=== PATIENT | female | born 1980 ===

== ENCOUNTER 2019-03-24 02:24 | Emergency (ER) | payer SELFPAY ==
[~2019-03-24 02:24] MED LIST: Sodium Chloride 0.9% 10 ML Syringe FLUSH PRN
[2019-03-24] MEDS ORDERED: Iopamidol 755 Mg/ML 100 ML Bottle IV ONE (02:42)
[2019-03-24] MEDS ORDERED: Sodium Chloride 0.9% 1,000 ML IV ONE (02:52)
--- NOTE | 2019-03-24 03:01 | EDM.PDOC ---
ED HPI GENERAL MEDICAL PROBLEM - General Chief Complaint: General Stated Complaint: Pill ingestion Time Seen by Provider: 03/24/19 02:30 Source of Information: Reports: Patient, EMS, Police History Limitations: Reports: Altered Mental Status - History of Present Illness INITIAL COMMENTS - FREE TEXT/NARRATIVE: Patient is currently incarcerated in [place], [place]. A bag of pills were found in the patient's possession at 6pm 03/23/19. Patient states she took 4-6 of them to sleep, but does not know exactly what time she took them, but per police worker , it was sometime before 6pm. Unfortunately pills were confiscated and sent to a facility for identification, they were not brought in with the patient. chemical instrumentation officer describes the pills as having a Q on one side and a cross on the other. Patient denies suicide attempt or ideation. She fell in the bathroom while urinating @01:30, struck her head, unknown if she lost consciousness. Complains of headache and LLQ abdominal pain. She complains of generalized weakness, is unsteady on her feet and feels nauseas. - Related Data Allergies Allergy/AdvReac Type Severity Reaction Status Date / Time No Known Allergies Allergy Verified 03/24/19 02:42 Home Meds: Home Meds NK [No Known Home Meds] 03/24/19 [History] Past Medical History - Past Health History Medical/Surgical History: Denies Medical/Surgical History ED ROS GENERAL - Review of Systems Review Of Systems: Comprehensive ROS is negative, except as noted in HPI. ED EXAM, GENERAL - Physical Exam Exam: See Below Exam Limited By: No Limitations General Appearance: WD/WN, No Apparent Distress, Lethargic Eye Exam: Bilateral Eye: EOMI, PERRL Throat/Mouth: No Airway Compromise Head: Normocephalic, Other (right forehead swelling) Neck: Supple, Non-Tender Respiratory/Chest: No Respiratory Distress, Lungs Clear, Normal Breath Sounds Cardiovascular: Regular Rate, Rhythm, No Murmur GI/Abdominal: Normal Bowel Sounds, Soft, No Distention, Tender (LLQ) Back Exam: Full Range of Motion Extremities: Normal Range of Motion Neurological: Normal Cognition, No Motor/Sensory Deficits, Disoriented, Other ( GCS 13 (E3, V4, M6)) Skin Exam: Warm, Dry, Intact EKG INTERPRETATION EKG Date: 03/24/19 Time: 03:15 Rhythm: NSR Rate (Beats/Min): 87 [place]: Normal P-Wave: Present QRS: Normal ST-T: Normal QT: Normal Course - Vital Signs Text/Narrative:: 0325: T 97.7, BP 115/76, HR 86, RR 25, Sa02 100% RA Last Recorded V/S: Last Vital Signs Temp 36.5 C 03/24/19 02:25 Pulse 91 03/24/19 02:25 Resp 18 03/24/19 02:25 BP 158/82 H 03/24/19 02:25 Pulse Ox 99 03/24/19 02:25 - Orders/Labs/Meds Orders: Active Orders 24 hr Category Date Time Status EKG Documentation Completion [RC] ASDIRECTED Care 03/24/19 02:27 Active Moya Catheter Insertion [Insert Urinary Catheter] [OM. Care 03/24/19 03:00 Ordered PC] Q24H Urinary Catheter Assessment [RC] QSHIFT Care 03/24/19 02:52 Active Abdomen Pelvis w Cont [CT] Stat Exams 03/24/19 02:29 Taken Cervical Spine wo Cont [CT] Stat Exams 03/24/19 03:25 Taken Head wo Cont [CT] Stat Exams 03/24/19 03:25 Taken UA W/MICROSCOPIC [URIN] Stat Lab 03/24/19 03:40 Ordered UA W/O MICROSCOPIC [URIN] Stat Lab 03/24/19 03:40 Ordered EKG 12 Lead [EK] Stat Ther 03/24/19 02:26 Ordered Labs: Laboratory Tests 03/24/19 03/24/19 03/24/19 Range/Units 02:34 02:34 02:34 WBC (4.5-12.0) X10-3/uL RBC (3.23-5.20) x10(6)uL Hgb (11.5-15.5) g/dL Hct (30.0-51.3) % MCV (80-96) fL MCH (27.7-33.6) pg MCHC (32.2-35.4) g/dL RDW (11.5-15.5) % Plt Count (125-369) X10(3)uL MPV (7.4-10.4) fL Neut % (Auto) (46-82) % Lymph % (Auto) (13-37) % [place] % (Auto) (4-12) % Eos % (Auto) (1.0-5.0) % Baso % (Auto) (0-2) % Neut # (Auto) (1.6-8.3) # Lymph # (Auto) (0.6-5.0) # [place] # (Auto) (0.0-1.3) # Eos # (Auto) (0.0-0.8) # Baso # (Auto) (0.0-0.2) # Sodium (135-145) mmol/L Potassium (3.5-5.3) mmol/L Chloride (100-110) mmol/L Carbon Dioxide (21-32) mmol/L BUN (7-18) mg/dL Creatinine (0.55-1.02) mg/dL Est Cr Clr Drug Dosing Estimated GFR (MDRD) (>60) BUN/Creatinine Ratio (9-20) Glucose (80-116) mg/dL Calcium (8.6-10.2) mg/dL Total Bilirubin (0.1-1.3) mg/dL AST (5-25) IU/L ALT (12-36) U/L Alkaline Phosphatase (56-112) IU/L Total Protein (6.0-8.0) g/dL Albumin (3.5-5.2) g/dL Globulin g/dL Albumin/Globulin Ratio TSH, Ultra Sensitive (0.36-3.74) IU/mL Urine Color Yellow (YELLOW) Urine Appearance Slightly cloudy (CLEAR) Urine pH 6.0 (5.0-6.5) Ur Specific [place] 1.025 (1.010-1.025) Urine Protein Negative (NEGATIVE) mg/dL Urine Glucose (UA) Normal (NORMAL) mg/dL Urine Ketones Negative (NEGATIVE) mg/dL Urine Occult Blood Negative (NEGATIVE) Urine Nitrite Negative (NEGATIVE) Urine Bilirubin Negative (NEGATIVE) Urine Urobilinogen Normal (NEGATIVE) mg/dL Ur Leukocyte Esterase Small H (NEGATIVE) Urine RBC Cancelled Urine WBC Cancelled Ur Epithelial Cells Cancelled Ur Squamous Epith Cells Cancelled Ur Renal Epithelial Cell Cancelled Calcium Oxalate Crystal Cancelled Uric Acid Crystals Cancelled Triple Phos Crystals Cancelled Other Crystals Cancelled Amorphous Sediment Cancelled Urine Bacteria Cancelled Hyaline Casts Cancelled Fine Granular Casts Cancelled Coarse Granular Casts Cancelled Waxy Casts Cancelled RBC Casts Cancelled WBC Casts Cancelled Urine Mucus Cancelled Urine Trichomonas Cancelled Urine Yeast Cancelled Urine Sperm Cancelled Ur Oval Fat Bodies Cancelled Urinalysis Comment Cancelled Urine HCG, Qual Negative (NEGATIVE) Salicylates (<2.8) mg/dL Urine Opiates Screen Negative (NEGATIVE) Ur Oxycodone Screen Negative (NEGATIVE) Ur Propoxyphene Screen Negative (NEGATIVE) Acetaminophen (<2) ug/mL Ur Barbituates Screen Negative (NEGATIVE) Ur Tricyclics Screen Negative (NEGATIVE) Ur Phencyclidine Scrn Negative (NEGATIVE) Ur Amphetamine Screen Positive H (NEGATIVE) Urine MDMA Screen Negative (NEGATIVE) U Benzodiazepines Scrn Positive H (NEGATIVE) U Cocaine Metab Screen Negative (NEGATIVE) U Marijuana (THC) Screen Negative (NEGATIVE) Ethyl Alcohol (<0.03) % 03/24/19 03/24/19 03/24/19 Range/Units 03:25 03:25 03:25 WBC 11.8 (4.5-12.0) X10-3/uL RBC 4.40 (3.23-5.20) x10(6)uL Hgb 14.0 (11.5-15.5) g/dL Hct 40.8 (30.0-51.3) % MCV 92.7 (80-96) fL MCH 31.9 (27.7-33.6) pg MCHC 34.4 (32.2-35.4) g/dL RDW 12.3 (11.5-15.5) % Plt Count 248 (125-369) X10(3)uL MPV 9.1 (7.4-10.4) fL Neut % (Auto) 58.7 (46-82) % Lymph % (Auto) 33.0 (13-37) % [place] % (Auto) 6.5 (4-12) % Eos % (Auto) 1 (1.0-5.0) % Baso % (Auto) 1 (0-2) % Neut # (Auto) 6.8 (1.6-8.3) # Lymph # (Auto) 3.9 (0.6-5.0) # [place] # (Auto) 0.8 (0.0-1.3) # Eos # (Auto) 0.2 (0.0-0.8) # Baso # (Auto) 0.1 (0.0-0.2) # Sodium 141 (135-145) mmol/L Potassium 3.8 (3.5-5.3) mmol/L Chloride 105 (100-110) mmol/L Carbon Dioxide 28 (21-32) mmol/L BUN 7 (7-18) mg/dL Creatinine 0.7 (0.55-1.02) mg/dL Est Cr Clr Drug Dosing TNP Estimated GFR (MDRD) > 60 (>60) BUN/Creatinine Ratio 10.0 (9-20) Glucose 88 (80-116) mg/dL Calcium 8.3 L (8.6-10.2) mg/dL Total Bilirubin 0.4 (0.1-1.3) mg/dL AST 26 H (5-25) IU/L ALT 54 H (12-36) U/L Alkaline Phosphatase 82 (56-112) IU/L Total Protein 7.0 (6.0-8.0) g/dL Albumin 3.4 L (3.5-5.2) g/dL Globulin 3.6 g/dL Albumin/Globulin Ratio 0.9 TSH, Ultra Sensitive (0.36-3.74) IU/mL Urine Color (YELLOW) Urine Appearance (CLEAR) Urine pH (5.0-6.5) Ur Specific [place] (1.010-1.025) Urine Protein (NEGATIVE) mg/dL Urine Glucose (UA) (NORMAL) mg/dL Urine Ketones (NEGATIVE) mg/dL Urine Occult Blood (NEGATIVE) Urine Nitrite (NEGATIVE) Urine Bilirubin (NEGATIVE) Urine Urobilinogen (NEGATIVE) mg/dL Ur Leukocyte Esterase (NEGATIVE) Urine RBC Urine WBC Ur Epithelial Cells Ur Squamous Epith Cells Ur Renal Epithelial Cell Calcium Oxalate Crystal Uric Acid Crystals Triple Phos Crystals Other Crystals Amorphous Sediment Urine Bacteria Hyaline Casts Fine Granular Casts Coarse Granular Casts Waxy Casts RBC Casts WBC Casts Urine Mucus Urine Trichomonas Urine Yeast Urine Sperm Ur Oval Fat Bodies Urinalysis Comment Urine HCG, Qual (NEGATIVE) Salicylates 2.0 L (<2.8) mg/dL Urine Opiates Screen (NEGATIVE) Ur Oxycodone Screen (NEGATIVE) Ur Propoxyphene Screen (NEGATIVE) Acetaminophen < 2 L (<2) ug/mL Ur Barbituates Screen (NEGATIVE) Ur Tricyclics Screen (NEGATIVE) Ur Phencyclidine Scrn (NEGATIVE) Ur Amphetamine Screen (NEGATIVE) Urine MDMA Screen (NEGATIVE) U Benzodiazepines Scrn (NEGATIVE) U Cocaine Metab Screen (NEGATIVE) U Marijuana (THC) Screen (NEGATIVE) Ethyl Alcohol < 0.03 (<0.03) % 03/24/19 Range/Units 03:25 WBC (4.5-12.0) X10-3/uL RBC (3.23-5.20) x10(6)uL Hgb (11.5-15.5) g/dL Hct (30.0-51.3) % MCV (80-96) fL MCH (27.7-33.6) pg MCHC (32.2-35.4) g/dL RDW (11.5-15.5) % Plt Count (125-369) X10(3)uL MPV (7.4-10.4) fL Neut % (Auto) (46-82) % Lymph % (Auto) (13-37) % [place] % (Auto) (4-12) % Eos % (Auto) (1.0-5.0) % Baso % (Auto) (0-2) % Neut # (Auto) (1.6-8.3) # Lymph # (Auto) (0.6-5.0) # [place] # (Auto) (0.0-1.3) # Eos # (Auto) (0.0-0.8) # Baso # (Auto) (0.0-0.2) # Sodium (135-145) mmol/L Potassium (3.5-5.3) mmol/L Chloride (100-110) mmol/L Carbon Dioxide (21-32) mmol/L BUN (7-18) mg/dL Creatinine (0.55-1.02) mg/dL Est Cr Clr Drug Dosing Estimated GFR (MDRD) (>60) BUN/Creatinine Ratio (9-20) Glucose (80-116) mg/dL Calcium (8.6-10.2) mg/dL Total Bilirubin (0.1-1.3) mg/dL AST (5-25) IU/L ALT (12-36) U/L Alkaline Phosphatase (56-112) IU/L Total Protein (6.0-8.0) g/dL Albumin (3.5-5.2) g/dL Globulin g/dL Albumin/Globulin Ratio TSH, Ultra Sensitive 1.53 (0.36-3.74) IU/mL Urine Color (YELLOW) Urine Appearance (CLEAR) Urine pH (5.0-6.5) Ur Specific [place] (1.010-1.025) Urine Protein (NEGATIVE) mg/dL Urine Glucose (UA) (NORMAL) mg/dL Urine Ketones (NEGATIVE) mg/dL Urine Occult Blood (NEGATIVE) Urine Nitrite (NEGATIVE) Urine Bilirubin (NEGATIVE) Urine Urobilinogen (NEGATIVE) mg/dL Ur Leukocyte Esterase (NEGATIVE) Urine RBC Urine WBC Ur Epithelial Cells Ur Squamous Epith Cells Ur Renal Epithelial Cell Calcium Oxalate Crystal Uric Acid Crystals Triple Phos Crystals Other Crystals Amorphous Sediment Urine Bacteria Hyaline Casts Fine Granular Casts Coarse Granular Casts Waxy Casts RBC Casts WBC Casts Urine Mucus Urine Trichomonas Urine Yeast Urine Sperm Ur Oval Fat Bodies Urinalysis Comment Urine HCG, Qual (NEGATIVE) Salicylates (<2.8) mg/dL Urine Opiates Screen (NEGATIVE) Ur Oxycodone Screen (NEGATIVE) Ur Propoxyphene Screen (NEGATIVE) Acetaminophen (<2) ug/mL Ur Barbituates Screen (NEGATIVE) Ur Tricyclics Screen (NEGATIVE) Ur Phencyclidine Scrn (NEGATIVE) Ur Amphetamine Screen (NEGATIVE) Urine MDMA Screen (NEGATIVE) U Benzodiazepines Scrn (NEGATIVE) U Cocaine Metab Screen (NEGATIVE) U Marijuana (THC) Screen (NEGATIVE) Ethyl Alcohol (<0.03) % Meds: Medications Discontinued Medications Generic Name Dose Route Start Last Admin Trade Name Isis PRN Reason Stop Dose Admin Sodium Chloride 1,000 mls @ 999 mls/hr 03/24/19 02:52 03/24/19 03:30 Normal Saline IV 03/24/19 03:52 999 mls/hr .BOLUS ONE Administration Iopamidol 100 ml 03/24/19 02:42 03/24/19 03:03 Isovue-370 (76%) IV 03/24/19 02:43 81 ml ONETIME ONE Administration - Radiology Interpretation Free Text/Narrative:: CT Head w/o contrast: No acute process. Sphenoid mucosal thickening and secretions. Correlate for possible sinusitis. ([facility], Dr. Mo) CT C-spine w/o contrast: No acute fracture or malalignment. ([facility], Dr. Mo) CT Abd/Pelvis w/ IV contrast: No acute process. Cholelithiasis. ([facility], Dr. Mo ) - Re-Assessments/Exams Free Text/Narrative Re-Assessment/Exam: 03/24/19 03:00 Poison Control consulted, recommended admission for observation, no additional recommendations. 03/24/19 04:32 Dr. Palencia accepts patient for transfer to [facility] ED, will transport by ALS ground. Departure - Departure Time of Disposition: 04:33 Disposition: DC/Tfer to Acute Hospital 02 Condition: Fair Clinical Impression: Altered level of consciousness Drug overdose Qualifiers: Encounter type: initial encounter Injury intent: undetermined intent Qualified Code(s): T50.904A - Poisoning by unspecified drugs, medicaments and biological substances, undetermined, initial encounter Blunt head trauma Qualifiers: Encounter type: initial encounter Qualified Code(s): S09.8XXA - Other specified injuries of head, initial encounter - Discharge Information Forms: ED Department Discharge Sepsis Event Note - Focused Exam Vital Signs: Vital Signs Temp Pulse Resp BP Pulse Ox 03/24/19 02:25 36.5 C 91 18 158/82 H 99 Date Exam was Performed: 03/24/19 Time Exam was Performed: 04:28 - My Orders Last 24 Hours: My Active Orders 03/24/19 02:26 EKG 12 Lead [EK] Stat 03/24/19 02:27 EKG Documentation Completion [RC] ASDIRECTED 03/24/19 02:29 Abdomen Pelvis w Cont [CT] Stat 03/24/19 02:52 Urinary Catheter Assessment [RC] QSHIFT 03/24/19 03:00 Moya Catheter Insertion [Insert Urinary Catheter] [OM.PC] Q24H 03/24/19 03:25 Cervical Spine wo Cont [CT] Stat Head wo Cont [CT] Stat 03/24/19 03:40 UA W/MICROSCOPIC [URIN] Stat UA W/O MICROSCOPIC [URIN] Stat - Assessment/Plan Last 24 Hours: My Active Orders 03/24/19 02:26 EKG 12 Lead [EK] Stat 03/24/19 02:27 EKG Documentation Completion [RC] ASDIRECTED 03/24/19 02:29 Abdomen Pelvis w Cont [CT] Stat 03/24/19 02:52 Urinary Catheter Assessment [RC] QSHIFT 03/24/19 03:00 Moya Catheter Insertion [Insert Urinary Catheter] [OM.PC] Q24H 03/24/19 03:25 Cervical Spine wo Cont [CT] Stat Head wo Cont [CT] Stat 03/24/19 03:40 UA W/MICROSCOPIC [URIN] Stat UA W/O MICROSCOPIC [URIN] Stat
[2019-03-24 04:03] LABS: ACETAMINOPHEN < 2 ug/mL (<2)
[2019-03-24] MEDS ORDERED: Sodium Chloride 0.9% 1,000 ML IV SCH (04:45)
== END 2019-03-24 05:40 ==
LOC: FB.ED 02:24
DX: T50.904A Poisoning by unspecified drugs, medicaments and biological substances, undetermined, initial encounter (principal); S09.90XA Unspecified injury of head, initial encounter; R40.1 Stupor; W01.198A Fall on same level from slipping, tripping and stumbling with subsequent striking against other object, initial encounter
CPT/HCPCS: 36415; 51702; 70450; 72125; 74177; 80053; 80305; 80320; 80329; 81003; 81025; 84443; 85025; 93005; 93010; 96360; 96361; 99284; 99285; J7030; Q9967; G0480